=== PATIENT | male | born 1995 | race Caucasian/White ===

== ENCOUNTER 2024-11-07 15:29 | Emergency (ER) | payer SELFPAY ==
[~2024-11-07] VITALS: Ht 170.2 cm; Wt 55.8 kg
[2024-11-07 17:09] VITALS: O2SAT 98
[2024-11-08] MEDS ORDERED: RABIES VACCINE (PCEC)/PF 2.5 UNIT ML IM ONE (09:35)
== END 2024-11-07 20:09 | disposition home or self-care (01) ==
LOC: ER 15:36
DX: S21.239A Puncture wound without foreign body of unspecified back wall of thorax without penetration into thoracic cavity, initial encounter (principal); Z23 Encounter for immunization; Z60.2 Problems related to living alone; W64.XXXA Exposure to other animate mechanical forces, initial encounter; Y93.89 Activity, other specified; Y92.89 Other specified places as the place of occurrence of the external cause; Y99.8 Other external cause status
CPT/HCPCS: A4606; A4663

== ENCOUNTER 2024-11-08 08:30 | Emergency (ER) | payer OTHER ==
[~2024-11-08] VITALS: Ht 170.2 cm; Wt 55.8 kg
[2024-11-08] MEDS: RABIES VACCINE (PCEC)/PF 2.5 UNIT ML IM ONE (09:44)
[2024-11-08 09:45] VITALS: BP 124/70; O2SAT 100
== END 2024-11-08 09:46 | disposition home or self-care (01) ==
LOC: EDSEX → ER 08:30
DX: S20.479A Other superficial bite of unspecified back wall of thorax, initial encounter (principal); Z23 Encounter for immunization; Z60.2 Problems related to living alone; W64.XXXA Exposure to other animate mechanical forces, initial encounter; Y93.89 Activity, other specified; Y92.89 Other specified places as the place of occurrence of the external cause; Y99.8 Other external cause status
CPT/HCPCS: A4606; A4663

== ENCOUNTER 2024-11-11 06:25 | Emergency (ER) | payer OTHER ==
[~2024-11-11] VITALS: Ht 170.2 cm; Wt 55.8 kg
[2024-11-11 06:28] VITALS: O2SAT 98
[2024-11-11] MEDS ORDERED: ACYC-108 PO (07:22)
[2024-11-11] MEDS ORDERED: ACYCLOVIR 200 MG CAPSULE ONE (07:29)
[2024-11-11] MEDS ORDERED: RABIES VACCINE (PCEC)/PF 2.5 UNIT ML IM ONE (07:30)
[2024-11-11] MEDS: RABIES VACCINE (PCEC)/PF 2.5 UNIT ML IM ONE (07:30)
[2024-11-11] MEDS: ACYCLOVIR 400 MG TABLET PO ONE (07:31)
== END 2024-11-11 07:36 | disposition home or self-care (01) ==
LOC: ER 06:25
DX: S20.409D Unspecified superficial injuries of unspecified back wall of thorax, subsequent encounter (principal); Z23 Encounter for immunization; Z60.2 Problems related to living alone; X58.XXXD Exposure to other specified factors, subsequent encounter
CPT/HCPCS: A4606; A4663

== ENCOUNTER 2024-11-19 08:20 | Emergency (ER) | payer OTHER ==
[~2024-11-19] VITALS: Ht 170.2 cm; Wt 57.6 kg
[~2024-11-19 08:20] MED LIST: ACYC-108 PO
[2024-11-19] MEDS ORDERED: RABIES VACCINE (PCEC)/PF 2.5 UNIT ML IM ONE (08:39)
[2024-11-19] MEDS: RABIES VACCINE (PCEC)/PF 2.5 UNIT ML IM ONE (08:50)
[2024-11-19 08:51] VITALS: BP 127/82; O2SAT 98
== END 2024-11-19 08:52 | disposition home or self-care (01) ==
LOC: EDSEX 08:20 → ER 08:20
DX: S21.23 Puncture wound without foreign body of back wall of thorax without penetration into thoracic cavity (principal); Z23 Encounter for immunization; Z60.2 Problems related to living alone; W64.XXXD Exposure to other animate mechanical forces, subsequent encounter
CPT/HCPCS: A4606; A4663